=== PATIENT | female | born 1965 | race Caucasian/White ===

== ENCOUNTER 2016-08-30 21:58 | Inpatient (IN) | payer OTHER, MEDICAID ==
[~2016-08-30] VITALS: Ht 175.3 cm; Wt 98.7 kg
[2016-08-30 22:45] LABS: microscopic required? YES; urine erythrocyte 2+ (NEGATIVE)
[2016-08-31 03:00] LABS: BASOPHIL % 0.4 % (0-2); PLATELET COUNT 212 x10^3mcL (130-400); RED CELL DISTRIBUTION WIDTH 13.6 % (11.5-14.5)
[2016-08-31 03:05] LABS: CALCIUM 8.3 mg/dL (8.5-10.1); CARBON DIOXIDE 29.7 mmol/L (21-32); CHLORIDE SERUM 105 mmol/L (98-107); CREATININE SERUM 0.8 mg/dL (0.6-1.0); GFR1 > 60 mL/min; GLUCOSE SERUM 108 mg/dL (74-106); SODIUM SERUM 140 mmol/L (136-145)
[2016-08-31 03:10] LABS: ALKALINE PHOSPHATASE 79 U/L (46-116); ALT/SGPT 24 U/L (14-59); AST/SGOT 20 U/L (15-37); BILIRUBIN TOTAL 0.32 mg/dL (0.20-1.00); TOTAL PROTEIN, SERUM 6.2 g/dL (6.4-8.2)
[2016-08-31 03:11] LABS: ALBUMIN 3.3 g/dL (3.4-5.0)
[2016-08-31] MEDS ORDERED: GILENYA0.5 MG PO (03:17)
[2016-08-31] MEDS ORDERED: AMPYRA10 M1 PO (03:17)
[2016-08-31] MEDS ORDERED: HYDROCHLOROTHIA25 MG PO (03:18)
[2016-08-31] MEDS ORDERED: HCTZ/LISINOPRIL1 TA2 PO (03:18)
[2016-08-31] MEDS ORDERED: BACLOFEN20 MG PO (03:19)
[2016-08-31] MEDS ORDERED: TEGRETOL200 MG PO (03:20)
[2016-08-31] MEDS ORDERED: DITROPAN XL5 MG PO (03:21)
[2016-08-31] MEDS ORDERED: SINGULAIR10 MG PO (03:22)
[2016-08-31] MEDS ORDERED: AMITRIPTYLINE H25 MG PO (03:23)
[2016-08-31] MEDS ORDERED: NEU300 PO (03:23)
[2016-08-31] MEDS ORDERED: D3-50001 TAB PO (03:24)
[2016-08-31] MEDS ORDERED: DEPAKOTE ER250 M1 PO (03:24)
[2016-08-31 04:12] LABS: T3 TOTAL 0.99 ng/mL
[2016-08-31 04:24] LABS: MAGNESIUM 2.1 mg/dL (1.8-2.4); PHOSPHOROUS 4.4 mg/dL (2.5-4.9)
[2016-08-31 04:25] LABS: CHOLESTEROL/HDL RATIO 3.1
[2016-08-31] MEDS ORDERED: TRAZODONE50 M1 PO (04:29)
[2016-08-31] MEDS ORDERED: CITALOPRAM HYDR40 M1 PO (04:30)
[2016-08-31 04:48] LABS: FREE T4 0.8 ng/dL (0.76-1.46); FREE THYROXINE INDEX 1.8 ug/dL (1.4-4.5)
[2016-08-31 04:51] VITALS: BP 147/53
[2016-08-31 07:17] LABS: AMPHETAMINE QUAL UR NONE DETECTED (NEG <=1000)
[2016-08-31 09:35] VITALS: BP 126/54
[2016-08-31 14:17] VITALS: BP 97/63
[2016-08-31 17:28] VITALS: BP 90/54
[2016-08-31 20:42] VITALS: BP 113/56
[2016-09-01 05:37] VITALS: BP 156/66
[2016-09-01 07:13] LABS: BASOPHIL % 0.3 % (0-2); PLATELET COUNT 172 x10^3mcL (130-400)
[2016-09-01 07:55] LABS: CARBON DIOXIDE 28.7 mmol/L (21-32); CHLORIDE SERUM 105 mmol/L (98-107); CREATININE SERUM 0.7 mg/dL (0.6-1.0); GFR1 > 60 mL/min; GLUCOSE SERUM 93 mg/dL (74-106); PHOSPHOROUS 3.7 mg/dL (2.5-4.9); POTASSIUM SERUM 3.7 mmol/L (3.5-5.1); SODIUM SERUM 141 mmol/L (136-145)
[2016-09-01 10:45] VITALS: BP 117/70
[2016-09-01 13:33] VITALS: BP 131/67
[2016-09-01 15:59] VITALS: BP 131/67
[2016-09-01] MEDS ORDERED: ZES20 PO (17:48)
[2016-09-01] MEDS ORDERED: LAC PO (17:49)
[2016-09-01] MEDS ORDERED: CIPRO500 MG PO (17:50)
[2016-09-01] MEDS ORDERED: COL100 PO (17:52)
[2016-09-01] MEDS ORDERED: NOR10T PO (17:52)
[2016-09-01 18:04] VITALS: BP 10/63
== END 2016-09-01 18:45 | disposition home or self-care (01) | DRG 757 ==
LOC: ED 21:58 → DU 08-31 03:15 → MU 09-01 11:45
PROVIDERS: Emergency Medicine; Family Medicine; ADMIT Family Medicine
DX: N70.11 Chronic salpingitis (principal); K85.90 Acute pancreatitis without necrosis or infection, unspecified; N17.0 Acute kidney failure with tubular necrosis; E44.1 Mild protein-calorie malnutrition; N39.0 Urinary tract infection, site not specified; G35 Multiple sclerosis; B96.20 Unspecified Escherichia coli [E. coli] as the cause of diseases classified elsewhere; I10 Essential (primary) hypertension; D64.9 Anemia, unspecified; F32.9 Major depressive disorder, single episode, unspecified; J30.2 Other seasonal allergic rhinitis; G89.29 Other chronic pain; M54.9 Dorsalgia, unspecified; G25.81 Restless legs syndrome; E66.9 Obesity, unspecified; Z68.32 Body mass index [BMI] 32.0-32.9, adult
CPT/HCPCS: 83880; 84439; 97116-GP; J0696; J1170; J1885; J2270; J2405; J7030; J7620; J7626; Q0092; Q0162

== ENCOUNTER 2016-09-08 18:05 | Emergency (ER) | payer OTHER, MEDICAID ==
[~2016-09-08 18:05] MED LIST: AMITRIPTYLINE H25 MG PO; AMPYRA10 M1 PO; BACLOFEN20 MG PO; CIPRO500 MG PO; CITALOPRAM HYDR40 M1 PO; COL100 PO; D3-50001 TAB PO; DEPAKOTE ER250 M1 PO; DITROPAN XL5 MG PO; GILENYA0.5 MG PO; HCTZ/LISINOPRIL1 TA2 PO; HYDROCHLOROTHIA25 MG PO; LAC PO; NEU300 PO; NOR10T PO; SINGULAIR10 MG PO; TEGRETOL200 MG PO; TRAZODONE50 M1 PO; ZES20 PO
[2016-09-08 20:51] VITALS: BP 120/61
== END 2016-09-08 20:51 | disposition home or self-care (01) ==
LOC: ED 18:05
DX: N70.11 Chronic salpingitis (principal); R10.2 Pelvic and perineal pain; R11.0 Nausea; J45.909 Unspecified asthma, uncomplicated; I10 Essential (primary) hypertension; Z91.048 Other nonmedicinal substance allergy status

== ENCOUNTER 2018-01-04 14:27 | Emergency (ER) | payer OTHER, MEDICAID ==
[~2018-01-04] VITALS: Ht 177.8 cm; Wt 95.3 kg
[2018-01-04 14:39] VITALS: Ht 177.8 cm; Wt 95.3 kg
[2018-01-04 16:54] LABS: BASOPHIL % 0.4 % (0-2); PLATELET COUNT 203 x10^3mcL (130-400); RED CELL DISTRIBUTION WIDTH 13.8 % (11.5-14.5)
[2018-01-04 17:08] LABS: ALBUMIN 3.6 g/dL (3.4-5.0); ALKALINE PHOSPHATASE 83 U/L (46-116); ALT/SGPT 33 U/L (14-59); AST/SGOT 27 U/L (15-37); BILIRUBIN TOTAL 0.47 mg/dL (0.20-1.00); CALCIUM 8.1 mg/dL (8.5-10.1); CARBON DIOXIDE 28.2 mmol/L (21-32); CHLORIDE SERUM 104 mmol/L (98-107); CREATININE SERUM 0.9 mg/dL (0.6-1.0); GFR1 > 60 mL/min; GLUCOSE SERUM 106 mg/dL (74-106); LIPASE 114 IU/L (73-393); SODIUM SERUM 138 mmol/L (136-145)
[2018-01-04 19:24] VITALS: BP 134/87
== END 2018-01-04 19:24 | disposition home or self-care (01) ==
LOC: ED 14:27
PROVIDERS: Emergency Medicine
DX: F32.9 Major depressive disorder, single episode, unspecified (principal); N39.0 Urinary tract infection, site not specified; G47.00 Insomnia, unspecified; J45.909 Unspecified asthma, uncomplicated; I10 Essential (primary) hypertension; G43.909 Migraine, unspecified, not intractable, without status migrainosus; Z90.711 Acquired absence of uterus with remaining cervical stump; Z86.69 Personal history of other diseases of the nervous system and sense organs
CPT/HCPCS: J0696; J7030; Q0162

== ENCOUNTER 2018-04-07 20:17 | Inpatient (IN) | payer OTHER, MEDICAID ==
[~2018-04-07] VITALS: Ht 175.3 cm; Wt 88.5 kg
[2018-04-07 21:20] LABS: BASOPHIL % 0.8 % (0-2); PLATELET COUNT 236 x10^3mcL (130-400); RED CELL DISTRIBUTION WIDTH 14.3 % (11.5-14.5)
[2018-04-07 21:41] LABS: ALBUMIN 4.3 g/dL (3.4-5.0); ALKALINE PHOSPHATASE 83 U/L (46-116); ALT/SGPT 34 U/L (14-59); AST/SGOT 23 U/L (15-37); BILIRUBIN TOTAL 0.7 mg/dL (0.20-1.00); CARBON DIOXIDE 27.7 mmol/L (21-32); CHLORIDE SERUM 99 mmol/L (98-107); CREATININE SERUM 0.9 mg/dL (0.6-1.0); GFR1 > 60 mL/min; GLUCOSE SERUM 106 mg/dL (74-106); LIPASE 118 IU/L (73-393); SODIUM SERUM 136 mmol/L (136-145); TOTAL PROTEIN, SERUM 8.1 g/dL (6.4-8.2)
[2018-04-07 21:43] LABS: POTASSIUM SERUM 2.7 mmol/L (3.5-5.1)
[2018-04-08] MEDS ORDERED: BACLOFEN20 MG PO (00:14)
[2018-04-08] MEDS ORDERED: OXYBUTYNIN CHLOR5 MG PO (00:14)
[2018-04-08] MEDS ORDERED: TOPIRAMATE50 M1 PO (00:24)
[2018-04-08] MEDS ORDERED: LISINOPRIL10 MG PO (00:25)
[2018-04-08] MEDS ORDERED: ACYCLOVIR400 MG PO (00:25)
[2018-04-08] MEDS ORDERED: HYDROCHLOROTHIA25 MG PO (00:25)
[2018-04-08] MEDS ORDERED: D3-50001 TAB PO (00:26)
[2018-04-08 01:17] VITALS: BP 146/76
[2018-04-08 01:23] VITALS: Ht 175.3 cm; Wt 88.5 kg
[2018-04-08 05:53] VITALS: BP 104/63
[2018-04-08 06:29] LABS: ALKALINE PHOSPHATASE 83 U/L (46-116); ALT/SGPT 77 U/L (14-59); AST/SGOT 127 U/L (15-37); BILIRUBIN TOTAL 0.96 mg/dL (0.20-1.00); CALCIUM 9.1 mg/dL (8.5-10.1); CARBON DIOXIDE 27.5 mmol/L (21-32); CHLORIDE SERUM 104 mmol/L (98-107); CREATININE SERUM 0.8 mg/dL (0.6-1.0); GFR1 > 60 mL/min; GLUCOSE SERUM 103 mg/dL (74-106); MAGNESIUM 2.2 mg/dL (1.8-2.4); POTASSIUM SERUM 3.4 mmol/L (3.5-5.1); SODIUM SERUM 140 mmol/L (136-145); TOTAL PROTEIN, SERUM 6.6 g/dL (6.4-8.2)
[2018-04-08 06:37] LABS: ALBUMIN 3.3 g/dL (3.4-5.0)
[2018-04-08 07:35] LABS: BASOPHIL % 0.4 % (0-2); PLATELET COUNT 194 x10^3mcL (130-400); RED CELL DISTRIBUTION WIDTH 14.6 % (11.5-14.5)
[2018-04-08 09:43] VITALS: BP 108/70
[2018-04-08 14:36] VITALS: BP 110/66
[2018-04-08 17:44] VITALS: BP 113/65
[2018-04-08 21:17] VITALS: BP 103/60
[2018-04-09 05:49] VITALS: BP 111/65
[2018-04-09 06:05] LABS: BASOPHIL % 0.3 % (0-2); PLATELET COUNT 181 x10^3mcL (130-400)
[2018-04-09 06:36] LABS: AMYLASE 66 U/L (25-115); CALCIUM 8.5 mg/dL (8.5-10.1); CARBON DIOXIDE 27.5 mmol/L (21-32); CHLORIDE SERUM 108 mmol/L (98-107); CREATININE SERUM 0.8 mg/dL (0.6-1.0); GFR1 > 60 mL/min; GLUCOSE SERUM 89 mg/dL (74-106); LIPASE 206 IU/L (73-393); MAGNESIUM 2.2 mg/dL (1.8-2.4); POTASSIUM SERUM 4.1 mmol/L (3.5-5.1); SODIUM SERUM 142 mmol/L (136-145)
[2018-04-09 09:34] VITALS: BP 106/57
[2018-04-09] MEDS ORDERED: KEFLEX500 M1 PO (11:19)
[2018-04-09 13:52] VITALS: BP 106/61
[2018-04-09 14:31] VITALS: BP 106/61
== END 2018-04-09 15:05 | disposition home or self-care (01) | DRG 690 ==
LOC: ED 20:17 → DU 04-08 00:13
PROVIDERS: Emergency Medicine; ADMIT Internal Medicine Pulmonary Disease
DX: N39.0 Urinary tract infection, site not specified (principal); D68.0 Von Willebrand disease; R10.9 Unspecified abdominal pain; E87.6 Hypokalemia; G35 Multiple sclerosis; J45.909 Unspecified asthma, uncomplicated; I10 Essential (primary) hypertension; M51.36 Other intervertebral disc degeneration, lumbar region; F41.8 Other specified anxiety disorders; F32.9 Major depressive disorder, single episode, unspecified; E78.5 Hyperlipidemia, unspecified
CPT/HCPCS: 82962; J0696; J1170; J2270; J2405; J2765; J3480; J3490

== ENCOUNTER 2018-05-19 18:58 | Inpatient (IN) | payer OTHER, MEDICAID ==
[~2018-05-19] VITALS: Ht 175.3 cm; Wt 85.5 kg
[~2018-05-19 18:58] MED LIST changes: +ACYCLOVIR400 MG PO; +KEFLEX500 M1 PO; +LISINOPRIL10 MG PO; +OXYBUTYNIN CHLOR5 MG PO; +TOPIRAMATE50 M1 PO
[2018-05-19 20:11] LABS: BASOPHIL % 0.7 % (0-2); PLATELET COUNT 187 x10^3mcL (130-400); RED CELL DISTRIBUTION WIDTH 14.5 % (11.5-14.5)
[2018-05-19 20:35] LABS: ALBUMIN 4.1 g/dL (3.4-5.0); ALKALINE PHOSPHATASE 78 U/L (46-116); ALT/SGPT 31 U/L (14-59); AST/SGOT 25 U/L (15-37); BILIRUBIN TOTAL 0.6 mg/dL (0.20-1.00); CALCIUM 9.1 mg/dL (8.5-10.1); CHLORIDE SERUM 98 mmol/L (98-107); CHOLESTEROL 193 mg/dL (<200); GFR1 > 60 mL/min; GLUCOSE SERUM 85 mg/dL (74-106); HDL CHOLESTEROL 47 mg/dL (40-60); SODIUM SERUM 133 mmol/L (136-145); TOTAL PROTEIN, SERUM 7.8 g/dL (6.4-8.2)
[2018-05-19 20:37] LABS: POTASSIUM SERUM 2.9 mmol/L (3.5-5.1)
[2018-05-19 23:09] LABS: microscopic required? YES; urine erythrocyte TRACE (NEGATIVE)
[2018-05-19] MEDS ORDERED: HYDROCHLOROTHIA25 MG PO (23:14)
[2018-05-20 00:49] VITALS: BP 125/54
[2018-05-20 01:00] VITALS: Ht 175.3 cm; Wt 85.5 kg
[2018-05-20 05:56] VITALS: BP 109/56; BP 112/46
[2018-05-20 06:22] LABS: BASOPHIL % 0.3 % (0-2); PLATELET COUNT 184 x10^3mcL (130-400); RED CELL DISTRIBUTION WIDTH 14.5 % (11.5-14.5)
[2018-05-20 06:45] LABS: ALBUMIN 3.7 g/dL (3.4-5.0); ALKALINE PHOSPHATASE 77 U/L (46-116); ALT/SGPT 25 U/L (14-59); AST/SGOT 24 U/L (15-37); BILIRUBIN TOTAL 0.46 mg/dL (0.20-1.00); CALCIUM 8.6 mg/dL (8.5-10.1); CARBON DIOXIDE 22.7 mmol/L (21-32); CHLORIDE SERUM 106 mmol/L (98-107); GFR1 > 60 mL/min; GLUCOSE SERUM 143 mg/dL (74-106); MAGNESIUM 2.3 mg/dL (1.8-2.4); PHOSPHOROUS 2.7 mg/dL (2.5-4.9); POTASSIUM SERUM 3.7 mmol/L (3.5-5.1); SODIUM SERUM 141 mmol/L (136-145); TOTAL PROTEIN, SERUM 7.6 g/dL (6.4-8.2)
[2018-05-20 09:30] VITALS: BP 123/73
[2018-05-20 16:28] VITALS: BP 102/56
[2018-05-20 20:40] VITALS: BP 101/47
[2018-05-21 06:09] VITALS: BP 91/52
[2018-05-21 09:58] VITALS: BP 101/55
[2018-05-21 17:59] VITALS: BP 119/59
[2018-05-21 21:11] VITALS: BP 117/53
[2018-05-22 05:43] VITALS: BP 107/62
[2018-05-22 08:27] LABS: BASOPHIL % 0.1 % (0-2); PLATELET COUNT 189 x10^3mcL (130-400); RED CELL DISTRIBUTION WIDTH 14.5 % (11.5-14.5)
[2018-05-22 08:35] LABS: ALKALINE PHOSPHATASE 76 U/L (46-116); ALT/SGPT 26 U/L (14-59); AST/SGOT 16 U/L (15-37); BILIRUBIN TOTAL 0.2 mg/dL (0.20-1.00); CALCIUM 8.5 mg/dL (8.5-10.1); CARBON DIOXIDE 25.1 mmol/L (21-32); CHLORIDE SERUM 106 mmol/L (98-107); CREATININE SERUM 0.8 mg/dL (0.6-1.0); GFR1 > 60 mL/min; GLUCOSE SERUM 117 mg/dL (74-106); MAGNESIUM 2.3 mg/dL (1.8-2.4); PHOSPHOROUS 2.4 mg/dL (2.5-4.9); POTASSIUM SERUM 3.6 mmol/L (3.5-5.1); SODIUM SERUM 140 mmol/L (136-145); TOTAL PROTEIN, SERUM 6.8 g/dL (6.4-8.2)
[2018-05-22 08:36] VITALS: BP 126/62
[2018-05-22 08:39] LABS: ALBUMIN 3.2 g/dL (3.4-5.0)
[2018-05-22] MEDS ORDERED: TAM75 PO (08:59)
[2018-05-22 12:02] VITALS: BP 126/62
== END 2018-05-22 13:35 | disposition home or self-care (01) | DRG 59 ==
LOC: ED 18:58 → MU 23:43
PROVIDERS: Emergency Medicine; ADMIT Internal Medicine Pulmonary Disease
DX: G35 Multiple sclerosis (principal); D68.0 Von Willebrand disease; B34.9 Viral infection, unspecified; E87.6 Hypokalemia; Z68.27 Body mass index [BMI] 27.0-27.9, adult; I10 Essential (primary) hypertension; Z87.891 Personal history of nicotine dependence
CPT/HCPCS: 87804; J2920; J2930; J7030

== ENCOUNTER 2018-06-02 17:44 | Observation (INO) | payer OTHER, MEDICAID ==
[~2018-06-02] VITALS: Ht 175.3 cm; Wt 86.4 kg
[~2018-06-02 17:44] MED LIST changes: +TAM75 PO
--- NOTE | 2018-06-02 18:30 | NUR ---
PT PRESENTS TO ED WITH C/O SOB. PT STS SHE WAS ADMITTED HERE ON 05/19/18 AND DISCHARGED ON 05/22/18 FOR ISSUES RELATED TO MULTIPLE SCLEROSIS. PT STS SHE HAS FELT SOB EVER SINCE SHE WAS DISCHARGED FROM HERE. PT STS "I JUST HAVEN'T FELT RIGHT SINCE I WAS DISCHARGED". PT ALSO STS SHE HAS FELT WEAK AND DIZZY SINCE SHE WAS DC'D FROM HERE. PT AAOX4, RESP E/U, SITTING UP ON GURNEY, ON FULL CM, NO ACUTE DISTRESS NOTED AT THIS TIME.
[2018-06-02 18:48] LABS: BASOPHIL % 0.9 % (0-2); PLATELET COUNT 206 x10^3mcL (130-400)
[2018-06-02 18:50] LABS: RED CELL DISTRIBUTION WIDTH 14.6 % (11.5-14.5)
[2018-06-02 19:10] LABS: CALCIUM 8.7 mg/dL (8.5-10.1); CARBON DIOXIDE 29.2 mmol/L (21-32); CREATININE SERUM 1.1 mg/dL (0.6-1.0)
[2018-06-02 19:14] LABS: ALBUMIN 3.5 g/dL (3.4-5.0); BILIRUBIN TOTAL 0.5 mg/dL (0.20-1.00); TOTAL PROTEIN, SERUM 6.8 g/dL (6.4-8.2)
--- NOTE | 2018-06-02 19:15 | NUR ---
PT SITTING UP IN BED ON CELL PHONE, NO S/S OF DISTRESS, RESPIRATIONS EVEN AND UNLABORED.
--- NOTE | 2018-06-02 21:06 | NUR ---
PT SITTING IN BED, NO S/S OF DISTRESS NOTED. PT REPORTS HEADACHE PAIN HAS DECREASED AFTER ADMINISTRATION OF TYLENOL PO.
[2018-06-02] MEDS ORDERED: ACYCLOVIR400 MG PO (21:54)
[2018-06-02] MEDS ORDERED: ESCITALOPRAM10 M1 PO (21:55)
[2018-06-02] MEDS ORDERED: BUPROPION HCL150 M1 PO (21:55)
--- NOTE | 2018-06-02 22:01 | NUR ---
REPORT GIVEN TO RUKHSANA ESPINOZA RN.
--- NOTE | 2018-06-02 22:20 | NUR ---
RECEIVED PT FROM ED VIA TJ, CAME IN DUE TO SOB. AAOX4. C/O DIZZINESS. ABLE TO FOLLOW COMMANDS. SPEECH IS CLEAR. NO ARM DRIFT/FACIAL DROOP NOTED. C/O MILD SOB, LUNG SOUNDS CTA, O2 SAT=99%, RA. STATED THAT SHE HAS PRODUCTIVE COUGH, ABLE TO EXPECTORATE SCANT AMOUNT OF WHITE, FOAMY PHLEGM. DENIES CHEST PAIN/PRESSURE, SR ON THE MONITOR. DENIES ABDOMINAL PAIN/NASUEA/VOMITING AT THIS TIME. STATED THAT SHE HAD 1 DIARRHEAL EPISODE TODAY. VOIDS. CANE AT BEDSIDE. MILD GENERALIZED WEAKNESS NOTED. IV SITE ON THE LAC IS PATENT AND INTACT. SIDE RAILS UPX2. CALL LIGHT ON REACH. ENDORSED TO PRIMARY NURSE OLGA FOR CONTINUITY OF CARE
[2018-06-02 22:27] VITALS: BP 112/78
[2018-06-02 22:32] VITALS: Ht 175.3 cm; Wt 86.4 kg
[2018-06-03 01:00] VITALS: BP 112/78
[2018-06-03 05:23] VITALS: BP 117/64
--- NOTE | 2018-06-03 06:27 | NUR ---
NO SIGNIFICANT CHANGES TO REPORT, PT COMPLIED WITH NURSING CARE THROUGHOUT THE SHIFT WITH NO ACUTE EVENTS OVERNIGHT. NO ACUTE DISTRESS OBSERVED AT THIS TIME, PT LAYING IN BED, BREATHING EVEN AND UNLABORED. COMFORT AND SAFETY MEASURES MAINTAINED. ALL NEEDS ASSESSED AND ATTENDED TO. CALL LIGHT WITHIN REACH. WILL CONTINUE TO MONITOR AND ENDORSE CARE TO DAY SHIFT NURSE
--- NOTE | 2018-06-03 07:24 | NUR ---
RECEIVED PT FROM SHIFT NURSE ASLEEP BUT AROUSABLE. NO ACUTE DISTERSS NOTED. RESP EVEN AND UNLABORED ON RA. IV INTACT AND PATENT. BED IN LOW POSITION. CALL LIGHT WITHIN REACH. WILL CONTINUE TO MONITOR.
[2018-06-03] MEDS ORDERED: FLONS (09:15)
[2018-06-03] MEDS ORDERED: ZIT250 PO (09:15)
[2018-06-03] MEDS ORDERED: ALBUD HHN (09:15)
[2018-06-03] MEDS ORDERED: GOOD SENSE OMEP20 MG PO (09:16)
[2018-06-03] MEDS ORDERED: PRE20 PO (09:16)
[2018-06-03 09:37] VITALS: BP 131/75
[2018-06-03 11:00] VITALS: BP 131/75
--- NOTE | 2018-06-03 13:28 | NUR ---
PT A/OX4 UPON DC. NO ACUTE DISTRESS NOTED. NEW RX SENT TO PT [facility] PER DR. CORTES EDUCTION PROVIDED. FOLLOW UP APT GIVEN. IV REMOVED AND CATH INTACT. PERSONAL BELONGINGS TAKEN HOME. ACCOMPANIED BY GLOST PLACER TO LOBBY.
== END 2018-06-03 13:26 | disposition home or self-care (01) | DRG 202 ==
LOC: ED 17:44 → DU 21:47
PROVIDERS: Emergency Medicine; ADMIT Internal Medicine
DX: J45.901 Unspecified asthma with (acute) exacerbation (principal); D68.0 Von Willebrand disease; F33.0 Major depressive disorder, recurrent, mild; I95.9 Hypotension, unspecified; G35 Multiple sclerosis; I10 Essential (primary) hypertension; E78.5 Hyperlipidemia, unspecified; M51.36 Other intervertebral disc degeneration, lumbar region; F41.9 Anxiety disorder, unspecified
CPT/HCPCS: 85378; G0378; J1644; J2920; J2930; J7030